=== PATIENT | female | born 1950 | race Caucasian/White ===

== ENCOUNTER 2023-05-05 09:42 | Emergency (ER) | payer MEDICARE, OTHER ==
[2023-05-05] MEDS: Orphenadrine 60 MG/2 ML Inj IM ONE (10:19)
[2023-05-05] MEDS: Ketorolac 30 MG/ML SDV IM ONE (10:19)
[2023-05-05 11:26] VITALS: BP 191/96; PULSE 81
== END 2023-05-05 11:20 | disposition home or self-care (01) ==
LOC: FB.ED 09:42
DX: M62.830 Muscle spasm of back (principal); F17.210 Nicotine dependence, cigarettes, uncomplicated
CPT/HCPCS: 96372; 99283; J1885; J2360

== ENCOUNTER 2023-05-19 07:07 | Emergency (ER) | payer MEDICARE, OTHER ==
[2023-05-19] MEDS ORDERED: tiZANidine 4 MG Tab PO STA (07:35)
[2023-05-19] MEDS ORDERED: Ketorolac 30 MG/ML SDV IM ONE (07:35)
[2023-05-19 08:11] LABS: BASOPHILS ABSOLUTE AUTO 0.1 x10-3/uL (0.0-0.1); BASOPHILS PERCENT AUTO 0.9 % (0.2-1.5); EOSINOPHILS ABSOLUTE AUTO 0.1 x10-3/uL (0.0-0.8); EOSINOPHILS PERCENT AUTO 0.9 % (0.6-8.1); HEMATOCRIT 50.9 % (34.2-48.2); HEMOGLOBIN 17.5 g/dL (11.4-15.5); LYMPHOCYTES ABSOLUTE AUTO 1.5 x10-3/uL (1.0-4.4); LYMPHOCYTES PERCENT AUTO 22.3 % (18.4-52.1); MEAN CORPUSCULAR HGB CONC 34.4 g/dL (31.9-34.8); MEAN CORPUSCULAR VOLUME 101.8 fL (76.7-100.5); MEAN PLATELET VOLUME 6.8 fL (7.1-12.4); MONOCYTES ABSOLUTE AUTO 0.7 x10-3/uL (0.3-1.0); MONOCYTES PERCENT AUTO 10.1 % (4.4-15.7); NEUTROPHILS ABSOLUTE AUTO 4.5 x10-3/uL (1.5-6.3); NEUTROPHILS PERCENT AUTO 65.8 % (30.8-76.2); PLATELET COUNT,PLT 341 x10(3)uL (151-488); RED CELL DISTRIBUTION WIDTH 14.5 % (12.3-16.5); WHITE BLOOD CELL COUNT,WBC 6.9 x10-3/uL (3.0-10.3)
[2023-05-19 08:14] LABS: A/G RATIO 0.8; ALANINE AMINOTRANSFERASE,ALT 44 U/L (12-36); ALBUMIN 3.5 g/dL (3.2-4.6); ALKALINE PHOSPHATASE 153 IU/L (56-112); ASPARTATE AMNIOTRANSFERASE,AST 34 IU/L (5-25); BILIRUBIN TOTAL 0.5 mg/dL (0.1-1.3); BLOOD UREA NITROGEN,BUN 7 mg/dL (7-18); CALCIUM 9.4 mg/dL (8.6-10.2); CARBON DIOXIDE,CO2 31 mmol/L (21-32); CHLORIDE,CL 97 mmol/L (100-110); CREATININE 0.7 mg/dL (0.55-1.02); EST CRCL DRUG DOSING (CG) 74.36 mL/min; ESTIMATED GFR 92 mL/min (>60); GLUCOSE RANDOM 114 mg/dL (80-116); POTASSIUM,K 4.4 mmol/L (3.5-5.3); SODIUM,NA 132 mmol/L (135-145)
[2023-05-19 08:24] LABS: BILIRUBIN,URINE NEGATIVE (NEGATIVE); GLUCOSE,URINE NORMAL (NORMAL); KETONES,URINE NEGATIVE (NEGATIVE); LEUKOCYTE ESTERASE,URINE NEGATIVE (NEGATIVE); NITRITE,URINE NEGATIVE (NEGATIVE); OCCULT BLOOD,URINE MODERATE (NEGATIVE); PROTEIN,URINE TRACE mg/dL (NEGATIVE); UROBILINOGEN,URINE NORMAL (NEGATIVE)
[2023-05-19 08:30] LABS: COLOR,URINE YELLOW (YELLOW)
[2023-05-19 08:31] LABS: APPEARANCE,URINE SLIGHTLY CLOUDY (CLEAR); BACTERIA,URINE FEW (NS); RBC,URINE 0-5 (0-5); SQUAMOUS EPITHELIAL CELLS,UR FEW (NS,R,O); WBC,URINE 0-5 (0-5)
[2023-05-19 09:43] VITALS: BP 169/82; PULSE 76
== END 2023-05-19 09:20 | disposition home or self-care (01) ==
LOC: FB.ED 07:07
DX: M54.50 Low back pain, unspecified (principal); G89.29 Other chronic pain; F17.210 Nicotine dependence, cigarettes, uncomplicated
CPT/HCPCS: 36415; 80053; 80307; 81001; 85025; 86140; 96372; 99283; A9270; J1885

== ENCOUNTER 2023-05-20 15:17 | Emergency (ER) | payer MEDICARE, OTHER ==
[2023-05-20] MEDS: Ketorolac 30 MG/ML SDV IM ONE (16:55)
[2023-05-20 20:38] VITALS: BP 150/84; PULSE 80
== END 2023-05-20 17:45 | disposition home or self-care (01) ==
LOC: FB.ED 15:17
DX: M62.830 Muscle spasm of back (principal); M54.50 Low back pain, unspecified; F17.210 Nicotine dependence, cigarettes, uncomplicated; Z79.899 Other long term (current) drug therapy
CPT/HCPCS: 96372; 99284; J1885